=== PATIENT | female | born 1990 | race Caucasian/White ===

== ENCOUNTER 2023-10-26 21:04 | Emergency (ER) | payer OTHER, SELFPAY ==
[2023-10-26 21:04] VITALS: BMI 19.8
[2023-10-26 21:06] VITALS: BP 119/85
--- NOTE | 2023-10-26 23:04 | ED.MUSCINJ ---
HPI-Injury
General
Chief Complaint: Musculo-Skeletal Complaint
Source: patient
Exam Limitations: none
Time Seen by Provider: 10/26/23 22:50
Nursing documentation reviewed up to this point in time: agreed with
History of Present Illness-Injury
Initial Injury comments:
This a pleasant 33-year-old female that presents with right arm pain after falling out of a tree. This happened this evening. Denies head injury or loss of consciousness. Patient took 3 Advil and wrapped her arm in an attempt to splint it.
Patient has no medical problems. She does suffer from anxiety.
Review of Systems
Review of Systems
Allergies reviewed?: Yes
All Other Systems: ROS reviewed and negative except as documented in HPI and ROS
Constitutional: Reports no symptoms
EENT: Reports no symptoms
Respiratory: Reports no symptoms
Cardiac: Reports no symptoms
ABD/GI: Reports no symptoms
: Reports no symptoms
Musculoskeletal: Reports muscle pain and other (Right forearm pain)
Skin: Reports no symptoms
Neurological: Reports no symptoms
Endocrine: Reports no symptoms
Hematologic/Lymphatic: Reports no symptoms
Psychiatric: Reports anxiety
Musculoskeletal Injury Exam
Musculoskeletal Injury Exam
Right Medial Arm:
Pain with Movement?: Moderate
Tender to palpation?: Moderate
Soft tissue swelling?: Mild
External deformity and angulation?: None
Joint effusion?: None
Contusion?: None
Hematoma-local bleeding into tissue?: None
Crepitus with movement?: Yes
Malalignment/deformity?: No
Range of motion: Limited
Distal skin color and temperature: normal-warm & good color
Capillary Refill: normal
Normal distal neurovascular exam?: Yes
Phy Exam
General Physical Exam
General Presentation: well appearing and mild distress
General age: appears stated age
General Skin: warm and dry
General Habitus: normal
General Mental: alert
General Hydration: appears well hydrated
ENT Exam
ENT Exam: EOMI, pharynx normal, neck supple and normocephalic
Eye Exam
Eye Exam: PERRL, cornea clear and conjunctiva normal
Cardiovascular Exam
Cardiovascular Exam: regular rate/rhythm, no edema, no murmur and normal peripheral pulses
Pulmonary Exam
Pulmonary Exam: lungs clear, no respiratory distress, no rales, no crackles, no rhonchi, no stridor, no wheezing and no cough
Gastrointestinal Exam
Gastrointestinal Exam: normal bowel sounds, non tender, soft, no organomegaly, no pulsatile mass and non distended
Neurological Exam
Neurological Exam: alert, oriented x3, no motor deficits and speech normal
Musculoskeletal Exam
Musculoskeletal Exam: neuro vasc intact
Skin Exam
Skin Exam: normal color, warm/dry, no rash and no petechia
Psychiatric Exam
Psychiatric Exam: normal mood/affect
Injury Course
Orders/Labs/Results
Orders:
Orders
10/26/23 21:10
CR Forearm - Right 2 View Urgent
Comment:
Reason For Exam: injury
Wrist, Right 3 Views [CR Wrist - Right Min 3 Views] Urgent
Comment:
Reason For Exam: injury
10/26/23 23:13
Oxycodone/Acetaminophen [Percocet 5/325] 1 tablet PO NOW STA
*Critical Care Note
Total Time (30-74mins, 75-104mins- exclusive of procedures): Not Applicable
ED Attending Note
-
Portions of this chart may have been created with voice recognition software.� Occasional wrong word or��sound alike� substitutions may have occurred due to the inherent limitations of voice recognition software.
Discharge Plan
Departure
Patient Disposition: Home (Routine Discharge)
Date of Disposition: 10/27/23
Time of Disposition: 00:15
Patient with high blood pressure during this ER visit?: No
Condition: Good
Discharge Problem:
Forearm fracture
Instructions: How to Use a Shoulder Sling, Using Cold for Pain, Splint Care, Forearm fracture
Prescriptions:
New
oxycodone-acetaminophen [Percocet] 5-325 mg tablet
1 tab PO Q6HPRN PRN (Reason: pain) Qty: 5 0RF
Referrals:
Ramin Pillai MD [Active] - Call in 1-3 days for appt
Activity Restrictions/Additional Instructions:
Your prescriptions were sent electronically to the pharmacy that you specified.
It was a pleasure meeting you and taking part in your care. We hope for your continued healing and wellness.
Please read discharge instructions in their entirety. However, they are for general education and may not describe your exact diagnosis at discharge. Information on your ER visit and medical conditions were discussed with you along with appropriate
follow up information...
If indicated, please take your medications as instructed and indicated on discharge paperwork.
Please schedule a follow up appointment as directed. Call to schedule an appointment
Please return to the emergency department with ANY change in, persisting, or worsening of symptoms. If any of your symptoms do not improve, or persist, or become more severe within 6-12 hours, please return to the emergency department for further
care.
Please return to the emergency department if you develop a headache, neck pain/stiffness, fever greater than 100.4F, chest pain, shortness of breath, persistent nausea, vomiting, slurred speech, difficulty walking, numbness/tingling, weakness, signs
of infection or any other symptoms that are worrisome to you.
If you have any questions or concerns please do not hesitate to call the Hospital at or E-mail me directly at [email or web address]
Interventions
Interventions:
*Risk Screen - Suicide Last Done: 10/26/23 23:38
*General Assessment Last Done: 10/26/23 21:06
*Neglect/Abuse Screening Last Done: 10/26/23 23:38
ED- Fall Risk Assessment Last Done: 10/27/23 00:33
*ED COVID-19 Vaccine History Last Done: 10/26/23 23:36
*Nursing Disposition Last Done: 10/27/23 00:33
ED-Musculoskeletal Assessment Last Done: 10/26/23 23:36
Discharge Date and Time
Discharge Date/Time: 10/27/23 00:35
Print Language: SWEDISH
[2023-10-26] MEDS: PERCOCET 5/325 1 TABLET PO (23:28)
[2023-10-26 23:33] VITALS: BP 126/93
[2023-10-27] VITALS: BP 133/84
== END 2023-10-27 00:35 | disposition home or self-care (01) ==
LOC: EMR 21:04
PROVIDERS: EMERGENCY PHYSICIAN Student in an Organized Health Care Education/Training Program; FAMILY PHYSICIAN Physician Assistant Medical
DX: S52.91XA Unspecified fracture of right forearm, initial encounter for closed fracture (principal); W14.XXXA Fall from tree, initial encounter; F41.9 Anxiety disorder, unspecified; M79.18 Myalgia, other site; F32.A Depression, unspecified; F41.0 Panic disorder [episodic paroxysmal anxiety]
CPT/HCPCS: 99283; 73090; 73110